=== PATIENT | male | born 1940 | race Caucasian/White ===

== ENCOUNTER → 2019-12-09 | Day surgery (SDC) | payer MEDICARE, OTHER | LOC: MSO 11:13 | DX: H25.812 Combined forms of age-related cataract, left eye (principal); R00.1 Bradycardia, unspecified; E78.00 Pure hypercholesterolemia, unspecified; I10 Essential (primary) hypertension; Z79.899 Other long term (current) drug therapy; Z95.5 Presence of coronary angioplasty implant and graft; Z87.891 Personal history of nicotine dependence; I25.10 Atherosclerotic heart disease of native coronary artery without angina pectoris | CPT/HCPCS: 00142; J0171; J2250; V2632 ==

== ENCOUNTER → 2020-05-04 | Day surgery (SDC) | payer MEDICARE, OTHER | LOC: MSO 07:35 | DX: H25.811 Combined forms of age-related cataract, right eye (principal); E78.00 Pure hypercholesterolemia, unspecified; I10 Essential (primary) hypertension; Z95.5 Presence of coronary angioplasty implant and graft; Z96.653 Presence of artificial knee joint, bilateral; Z79.82 Long term (current) use of aspirin; Z87.891 Personal history of nicotine dependence; I25.10 Atherosclerotic heart disease of native coronary artery without angina pectoris | CPT/HCPCS: 00142; J0171; J2250; V2632 ==

== ENCOUNTER → 2021-07-06 | Outpatient (CLI) | payer MEDICARE, OTHER | END | disposition home or self-care (01) | LOC: RAD 15:29 | DX: G31.84 Mild cognitive impairment of uncertain or unknown etiology (principal); I67.82 Cerebral ischemia | CPT/HCPCS: A9585 ==

== ENCOUNTER 2022-02-13 18:44 | Emergency (ER) | payer MEDICARE, OTHER ==
[~2022-02-13] VITALS: Ht 180.3 cm; Wt 90.5 kg
[2022-02-13] MEDS ORDERED: LIPITOR 80MG80 MG PO (19:16)
[2022-02-13] MEDS ORDERED: GOOD NEIGHBOR325 MG PO (19:16)
[2022-02-13] MEDS ORDERED: COREG 6.256.25 MG/TA PO (19:16)
[2022-02-13] MEDS ORDERED: FISH OIL 1,0001 EAC3 PO (19:17)
[2022-02-13] MEDS ORDERED: ZESTRIL2.5 M1 PO (19:17)
[2022-02-13] MEDS ORDERED: MELATONIN5 M3 PO (19:17)
[2022-02-13 19:39] LABS: BASO # 0.03 K/mm3 (0.02-0.10); EOS # 0.29 K/mm3 (0.04-0.40); EOS % 3.1 % (0.0-4.0); HEMOGLOBIN 13.9 g/dL (13.5-18.0); LYMPH# 1.33 K/mm3 (1.50-4.00); MEAN CELL VOLUME 95 fl (78-100); MEAN CORPUSCULAR HEMOGLOBIN 32 pg (27-31); MEAN CORPUSCULAR HGB CONC 33 g/dL (33-37); MEAN PLATELET VOLUME 9.2 fl (7.4-10.4); MONO # 0.74 K/mm3 (0.20-0.80); NEU # 6.98 K/mm3 (1.40-6.50); PLATELET COUNT 183 K/mm3 (130-400); RED BLOOD COUNT 4.41 M/mm3 (4.20-5.60); RED CELL DISTRIBUTION WIDTH 12.4 % (11.5-14.5); WHITE BLOOD COUNT 9.4 K/mm3 (4.8-10.8)
[2022-02-13 19:57] LABS: ALBUMIN 4.2 g/dL (3.4-4.8); POTASSIUM 4.2 mmol/L (3.5-5.1)
[2022-02-13 19:58] LABS: CALCIUM 9.3 mg/dL (8.3-10.5); PROTHROMBIN TIME 10.9 SECONDS (9.0-12.0)
[2022-02-13 20:15] VITALS: BP 132/85
[2022-02-13 20:15] LABS: TOTAL BILIRUBIN 0.9 mg/dL (0.2-1.2)
== END 2022-02-13 20:15 | disposition short-term general hospital (02) ==
LOC: ED 18:44
PROVIDERS: Nurse Practitioner
DX: T18.128A Food in esophagus causing other injury, initial encounter (principal)

== ENCOUNTER → 2023-08-15 | Outpatient (CLI) | payer MEDICARE, OTHER ==
[~2023-08-15] MED LIST: COREG 6.256.25 MG/TA PO; FISH OIL 1,0001 EAC3 PO; GOOD NEIGHBOR325 MG PO; LIPITOR 80MG80 MG PO; MELATONIN5 M3 PO; ZESTRIL2.5 M1 PO
[2023-08-15 10:23] LABS: BASO # 0.03 K/mm3 (0.02-0.10); EOS # 0.21 K/mm3 (0.04-0.40); EOS % 3.7 % (0.0-4.0); HEMATOCRIT 38.8 % (42.0-52.0); HEMOGLOBIN 12.7 g/dL (13.5-18.0); LYMPH# 1.19 K/mm3 (1.50-4.00); MEAN CELL VOLUME 97 fl (78-100); MEAN CORPUSCULAR HEMOGLOBIN 32 pg (27-31); MEAN CORPUSCULAR HGB CONC 33 g/dL (33-37); MEAN PLATELET VOLUME 8.9 fl (7.4-10.4); MONO # 0.61 K/mm3 (0.20-0.80); NEU # 3.62 K/mm3 (1.40-6.50); PLATELET COUNT 159 K/mm3 (130-400); RED CELL DISTRIBUTION WIDTH 12.7 % (11.5-14.5); WHITE BLOOD COUNT 5.7 K/mm3 (4.8-10.8)
[2023-08-15 10:32] LABS: ALBUMIN 3.8 g/dL (3.4-4.8)
[2023-08-15 10:34] LABS: TOTAL PROTEIN 6.4 g/dL (6.2-8.1)
[2023-08-15 10:36] LABS: TOTAL BILIRUBIN 1.2 mg/dL (0.2-1.2)
== END ==
LOC: LAB 10:09
PROVIDERS: Internal Medicine
DX: Z11.59 Encounter for screening for other viral diseases (principal); I10 Essential (primary) hypertension; E78.5 Hyperlipidemia, unspecified; N40.1 Benign prostatic hyperplasia with lower urinary tract symptoms